=== PATIENT | female | born 2000 | race Hispanic/Latino ===

== ENCOUNTER → 2023-03-26 | Outpatient (CLI) | payer SELFPAY ==
[2023-03-26 22:44] LABS: SARS-CoV-2, RNA, NAAT NEGATIVE SARS CoV-2 (NEGATIVE)
== END | disposition home or self-care (01) ==
LOC: LAB 22:11
PROVIDERS: ATTEND Hospitalist
DX: Z11.52 Encounter for screening for COVID-19 (principal); Z20.822 Contact with and (suspected) exposure to COVID-19
CPT/HCPCS: 87635